=== PATIENT | female | born 1970 ===

== ENCOUNTER 2022-01-11 10:44 | Day surgery (SDC) | payer OTHER ==
[~2022-01-11 10:44] MED LIST: METFORMIN HCL500 M3 PO; PRAVASTATIN SOD10 MG PO
[2022-01-11] MEDS ORDERED: CVS CALCIUM 601 EAC5 (16:29)
[2022-01-11] MEDS ORDERED: AZELAIC ACID50 GM (16:29)
[2022-01-11] MEDS ORDERED: METAXALONE800 MG (16:30)
[2022-01-11] MEDS ORDERED: LORATADINE10 MG (16:30)
[2022-01-11] MEDS ORDERED: FLONASE16 GM (16:30)
[2022-01-11] MEDS ORDERED: SPIRONOLACTONE100 MG (16:30)
[2022-01-11] MEDS ORDERED: MORGIDOX100 MG PO (16:33)
== END 2022-01-11 18:55 | disposition home or self-care (01) ==
LOC: CIR.AMB 10:44 → O/R 14:17 → CIR.AMB 15:45 → O/R 20:55
PROVIDERS: ATTEND Obstetrics & Gynecology
DX: N84.2 Polyp of vagina (principal); Z91.013 Allergy to seafood; Z20.822 Contact with and (suspected) exposure to COVID-19; E78.5 Hyperlipidemia, unspecified; E66.9 Obesity, unspecified; Z79.84 Long term (current) use of oral hypoglycemic drugs; E11.9 Type 2 diabetes mellitus without complications